=== PATIENT | male | born 1970 | race Caucasian/White ===

== ENCOUNTER 2022-11-27 08:26 | Day surgery (SDC) | payer BC, SELFPAY ==
[2022-11-27] VITALS (10 sets, daily range): BP systolic 109–166; BP diastolic 69–94; PULSE 51–60; RESP 16–20; O2SAT 95–100; BMI 32.5
--- NOTE | 2022-11-27 08:17 | IR_ITS ---
APPROVED REPORT Patient Location: Outpatient PROCEDURES Left heart catheterization Left ventriculogram Selective coronary angiogram Intravascular ultrasound to the LAD and left main artery INDICATION Typical worsening angina pectoris, Known coronary artery disease, Abnormal Myoview anterior ischemia Informed consent was obtained prior to the procedure. COMPLICATIONS NONE Estimated Blood Loss: LESS THAN 10 ML TECHNIQUE One percent lidocaine used to anesthetize the right anterior aspect of the wrist. The right radial artery was accessed via the Seldinger technique. A 6 Hebrew sheath was placed in the right radial artery. 150 mg magnesium sulfate, 800 mcg of nitroglycerin, 1mg Lidocaine and 5000 U Heparin were given through the arterial sheath. The papa catheter was also used to perform left heart catheterization, left ventriculogram and selective coronary angiogram. At the end the diagnostic angiogram therapeutic heparin was administered giving a therapeutic ACT and a guide catheter was placed in left main artery followed by a Choice PT extra-support wire being placed on the circumflex artery. The area of interest was the mid to distal circumflex artery. The intravascular ultrasound probe would not go past or beyond the left main artery and into the circumflex artery despite adequate guide support. Intravascular ultrasound interrogation demonstrated a large plaque burden in the distal left main artery. The wire was then pulled back out of the circumflex artery and into the LAD where it was then advanced. Interrogation demonstrated a high plaque burden. The MLA of the left main was 5.8 mm??? with a reference vessel of 23.5 mm???. This constituted a greater than 70% plaque burden within the left main artery. It was presumed the ostial left circumflex artery was severely diseased given the intravascular ultrasound probe could not enter the circumflex artery. At the end the procedure the apparatus was removed the sheath was removed and hemostasis was achieved using TR banding patient was transferred to the postoperative stabilization ANGIOGRAPHIC RESULTS The left main artery Was angiographically stenosed by 30% however by intravascular ultrasound probe the plaque burden exceeded 70% with an MLA of 5.8 mm??? The left anterior descending artery Had angiographically stenosed proximal area of 30% followed by a proximal to mid stent which has 30 to 40% eccentric in-stent restenosis. Distal to the stent is an additional 40 to 50% LAD stenosis. The circumflex artery Is a nondominant yet still large vessel with an ostial stenosis which cannot be angiographically identified however was severe enough to not allow passage of an intravascular ultrasound probe. There are additional 30% stenoses with a distal 40 to 50% hazy stenosis just proximal to the first and second obtuse marginal artery The right coronary artery Is a large dominant vessel and has proximal 10 to 20% stenosis with a mid vessel hazy 50 to 60% stenosis. This gives rise to a large posterior descending artery and posterior lateral branch. The PDA has mid vessel 60 to 70% stenosis The SETHI ventriculogram reveals Preserved at 60% The left ventricular end-diastolic pressure 10 mmHg IMPRESSION Severe distal left main disease as described above with a IVUS plaque burden exceeding 70% Moderate to severe disease in the mid dominant right coronary Preserved ejection fraction Normal left ventricular end-diastolic pressure PLAN 1. Refer to [facility] for consideration of bypass surgery 2. LDL less than 55 to be achieved with high intensity statin 3. Avoidance of tobacco products 4. Risk factor modification Electronically signed b
[2022-11-27 09:01] LABS: Basophils % 0.6 % (0.1-2.0); Eosinophils # 0.2 K/mm3 (0.0-0.4); Eosinophils % 2.5 % (0.1-12.0); Hematocrit 44.8 % (42.0-52.0); Hemoglobin 14.5 g/dL (14.1-18.0); Lymphocytes # 1.7 K/mm3 (0.7-4.5); Lymphocytes % 24.2 % (10-50); Mean Corpuscular HGB Conc 32.3 g/dL (31.8-35.4); Mean Corpuscular Hemoglobin 30.5 pg (27.0-31.2); Mean Corpuscular Volume 94.3 fl (80-94); Monocytes # 0.5 K/mm3 (0.1-1.0); Neutrophils # 4.6 K/mm3 (1.8-7.8); Neutrophils % 65.8 % (37.0-80.0); Platelet Count 232 K/mm3 (142-424); Red Blood Count 4.75 M/mm3 (4.60-6.20); Red Cell Distribution Width 12.8 % (11.5-17.5)
[2022-11-27 09:33] LABS: Chloride 95 mmol/L (98-107)
[2022-11-27 09:34] LABS: Potassium 3.8 mmoL/L (3.5-5.1); Sodium 138 mmol/L (136-145)
[2022-11-27 09:37] LABS: Anion Gap 19.8 mEq/L (5-15); Blood Urea Nitrogen 12 mg/dl (9-20); Calcium 9.2 mg/dl (8.4-10.2); Carbon Dioxide 27 mmol/L (22.0-30.0); Creatinine Clearance Estimated 142 mL/min (50-200); Estimated Glomerular Filt Rate 79 ml/min (>60); GFR (African American) 95 ML/MIN (>60); Glucose 118 mg/dl (74-100)
[2022-11-27 14:10] LABS: CATHL Activated Clotting Time 297 SEC (74-125)
== END 2022-11-27 13:56 | disposition home or self-care (01) ==
PROVIDERS: PCP Internal Medicine; Visit Provider Internal Medicine
DX: I25.118 Atherosclerotic heart disease of native coronary artery with other forms of angina pectoris (principal); Z79.899 Other long term (current) drug therapy; I10 Essential (primary) hypertension; Z95.5 Presence of coronary angioplasty implant and graft; E78.5 Hyperlipidemia, unspecified; R94.39 Abnormal result of other cardiovascular function study; I25.83 Coronary atherosclerosis due to lipid rich plaque; T82.855A Stenosis of coronary artery stent, initial encounter
CPT/HCPCS: 80048; 85025; 85347; 92978; 92979; 93458; 99152; 99153; C1725; C1769; J1644; Q9967

== ENCOUNTER → 2023-02-24 07:41 | Outpatient (CLI) | payer BC, SELFPAY ==
--- NOTE | 2023-02-24 07:57 | CA_ITS ---
APPROVED REPORT EXAM: Comprehensive 2D, Doppler, and color-flow Echocardiogram Mannequin Molder: Perri Myers RT(R) Ht: 6 ft 2 in Wt: 233lbs BSA: 2.32 BP: 143/88 mmHg Indications: SOB, CABG (12/2022) X 4, Ex smoker, HTN, hyperlipidemia 2D Dimensions LVOT 2.08 cm (M/F) 1.5-2.5 LVEF (Mijares's) 60.80 % M: 52 - 72 LV Volume 100.80 mL M: 62 - 150 LV Volume Index 43.45 mL/m2 M: 34 - 74 M-Mode Dimensions RVDd 2.32 cm (0.9-2.6) LA Diam 4.24 cm (1.9-4.0) LVDd 5.65 cm (3.5-5.7) Ao Diam 2.91 cm (2.0-3.7) LVDs 4.25 cm (3.5-5.7) IVSd 0.88 cm (0.6-1.1) PWd 0.84 cm (0.6-1.1) EF (Teich) 48.50% FS 24.80% EDV (Teich) 156.80 mL ESV (Teich) 80.80 mL LV Diastology E Decel Time 200.00 (160-240 msec) E/A Ratio 1.4 MED E' 8.70 (< 7 cm/sec) E'/MED E' Ratio 8.83 (>14) LAT E' 10.80 (<10 cm/sec) E/LAT E' Ratio 7.11 (>14) Mitral Valve MV E Max Anselmo. 77.00 (40-130 cm/s) MV A Velocity 54.00 (40-130 cm/s) E/A Ratio 1.44 MV Decel. Time 200.00 (160-240 ms) MV PHT 59.00 ms Tricuspid Valve TR P. Velocity 212.00 cm/s RAP Estimate 10.00 mmHg RVSP 28.00 mmHg Left Ventricle The left ventricle is normal size. The left ventricular systolic function is normal. The left ventricular ejection fraction is within the normal range. There is increased LV wall thickness. There is normal LV segmental wall motion. The left ventricular diastolic function is normal. LVEF is 55%. Right Ventricle Right ventricle is moderately dilated. The right ventricular systolic function is normal. There is increased RV wall thickness. Atria The left atrium size is normal. The right atrium size is normal. Aortic Valve The aortic valve is possibly bicuspid. The aortic valve is mildly thickened. There is no aortic valvular stenosis. No aortic regurgitation is present. Mitral Valve The mitral valve is mildly thickened. No evidence of mitral valve stenosis. Trace mitral regurgitation. Tricuspid Valve The tricuspid valve leaflets are thin and pliable. Trace tricuspid regurgitation. RVSP = 16 mmHg + RA pressure Pulmonic Valve The pulmonary valve is normal in structure. Trace pulmonic regurgitation. Great Vessels The aortic root is normal in size. The IVC is not well visualized. Pericardium There is no pericardial effusion. Other Information Study Quality: Technically Difficult. Technically limited study due to poor accoustic windows. Conclusion Technically difficult study. Normal biventricular systolic function. Moderate RV dilation. Electronically signed by : Marci Harris, 02/24/2023 18:04:32
== END ==
PROVIDERS: Visit Provider Nurse Practitioner
DX: R06.00 Dyspnea, unspecified (principal); I25.10 Atherosclerotic heart disease of native coronary artery without angina pectoris; I10 Essential (primary) hypertension; E78.5 Hyperlipidemia, unspecified
CPT/HCPCS: 93306

== ENCOUNTER 2023-04-13 07:56 | Day surgery (SDC) | payer BC, SELFPAY ==
[2023-04-13] VITALS (13 sets, daily range): BP systolic 99–148; BP diastolic 63–83; PULSE 50–63; RESP 16–20; O2SAT 96–99; BMI 31.3
--- NOTE | 2023-04-13 07:19 | IR_ITS ---
APPROVED REPORT Patient Location: Outpatient Documentation Consultant: BATSHEVA Cruz RT (R) PROCEDURES Selective coronary angiogram Selective engagement of left internal mammary artery to the LAD Selective engagement saphenous vein graft to the right coronary Selective engagement saphenous vein graft circumflex artery Catheter placed in the ascending aorta Ascending aortogram Drug-eluting stent deployment to the first obtuse marginal artery off the circumflex artery INDICATION Coronary artery disease, History of coronary bypass surgery, Accelerated angina pectoris, Loss of saphenous vein graft to the right coronary artery and circumflex artery, Informed consent was obtained prior to the procedure. COMPLICATIONS NONE Estimated Blood Loss: LESS THAN 10 ML TECHNIQUE One percent lidocaine used to anesthetize the right groin. The right femoral artery was accessed via the Seldinger technique and a 5 Bahraini sheath was placed in the right femoral artery. A JL 4, JR4 multipurpose catheter AL-1 catheter LCB catheter and MACKENZIE catheter were used to perform selective coronary angiography as well as selective engagement of the 2 vein grafts and the left internal mammary artery. The vein grafts appear to be bluntly occluded although it was believed the catheter engaged each vein graft it was still decided to perform a sending aortography to make sure no venous graft was patent. At the end of the diagnostic angiogram therapeutic heparin was administered and the 5 Bahraini sheath was exchanged for a 6 Bahraini sheath and a 6 Bahraini JL 4 guide catheter was placed in left main artery followed by Choice PT extra-support wire being placed on the circumflex artery. A 2 mm x 15 mm Dino frontier stent was deployed in the obtuse marginal artery at 20 wilfredo reducing the severe to critical stenosis to 0%. KELLY-3 flow was present before and after the procedure. At the end the procedure the apparatus was removed the groin is reprepped closure change sheath was removed and hemostasis was achieved using Perclose device patient was transferred to the postop holding in stable condition ANGIOGRAPHIC RESULTS The left main artery Has distal 10 to 20% stenosis The left anterior descending artery Has proximal and mid vessel 20 to 30% stenoses followed by a patent stent. Distal to the stent there is a 30 to 40% hazy stenosis. At the anastomosis site is a focal 80% stenosis followed by a distal concentric 90% stenosis. The circumflex artery Is a nondominant vessel gives rise to a moderate-sized first obtuse marginal artery which has a focal mid vessel 90% concentric stenosis. The second obtuse marginal artery small to moderate and is patent The right coronary artery Is a dominant vessel and has proximal 30% stenosis with a mid vessel hazy 40% stenosis with diffuse 30% stenoses throughout the large posterior lateral branch. The posterior descending artery is large and has distal 50% stenosis followed by an eccentric 90% stenosis in an area where the vessel is 1.75 to 2 mm in diameter with relatively small distal runoff The SETHI ventriculogram reveals Not performed The left ventricular end-diastolic pressure Not measured MACKENZIE to LAD is patent but small in caliber and anastomoses at an 80 to 90% stenosis with an additional 90% stenosis distal to the anastomosis within the LAD proper Saphenous to circumflex artery ostially occluded Saphenous to PDA ostially occluded Ascending aorta demonstrates normal aortic root IMPRESSION Interval loss of both saphenous vein grafts 1 to the circumflex artery at the other to the posterior descending artery Severe disease at the MACKENZIE anastomosis and distal to the anastomosis in the [place] LAD Successful stenting of the first obtuse marginal artery severe disease reduced to 0% wit
[2023-04-13 08:49] LABS: Basophils % 0.7 % (0.1-2.0); Eosinophils # 0.1 K/mm3 (0.0-0.4); Eosinophils % 1.8 % (0.1-12.0); Hematocrit 38.7 % (42.0-52.0); Hemoglobin 12.4 g/dL (14.1-18.0); Lymphocytes # 1.4 K/mm3 (0.7-4.5); Lymphocytes % 26.9 % (10-50); Mean Corpuscular HGB Conc 31.9 g/dL (31.8-35.4); Mean Corpuscular Hemoglobin 26.6 pg (27.0-31.2); Mean Corpuscular Volume 83.2 fl (80-94); Mean Platelet Volume 8.3 fl (7.4-10.4); Monocytes # 0.4 K/mm3 (0.1-1.0); Monocytes % 7.3 % (1.7-9.3); Neutrophils # 3.2 K/mm3 (1.8-7.8); Neutrophils % 63.3 % (37.0-80.0); Platelet Count 256 K/mm3 (142-424); Red Blood Count 4.65 M/mm3 (4.60-6.20); Red Cell Distribution Width 17.3 % (11.5-17.5)
[2023-04-13 08:58] LABS: Anion Gap 13.6 mEq/L (5-15); Blood Urea Nitrogen 12 mg/dl (9-20); Carbon Dioxide 28 mmol/L (22.0-30.0); Chloride 102 mmol/L (98-107); Creatinine Clearance Estimated 135 mL/min (50-200); Estimated Glomerular Filt Rate 78 ml/min (>60); GFR (African American) 95 ML/MIN (>60); Glucose 123 mg/dl (74-100); Potassium 4.6 mmoL/L (3.5-5.1); Sodium 139 mmol/L (136-145)
[2023-04-13 11:49] LABS: CATHL Activated Clotting Time 319 SEC (74-125)
--- NOTE | 2023-04-13 14:37 | HMH.PHACL ---
PHA Offset Duplicating Machine Operator Discharge Med Pharm Spec: Glendy Baxter has received discharge medication counseling on the following medications: ASPIRIN PLAVIX CRESTOR METOPROLOL LOSARTAN Patient already taking all required medications. No questions or concerns at this time. -Josy BrantleyD
== END 2023-04-13 14:52 | disposition home or self-care (01) ==
PROVIDERS: Visit Provider Internal Medicine
DX: R07.9 Chest pain, unspecified (principal); Z95.1 Presence of aortocoronary bypass graft; Z87.891 Personal history of nicotine dependence; I25.110 Atherosclerotic heart disease of native coronary artery with unstable angina pectoris; I10 Essential (primary) hypertension; E78.5 Hyperlipidemia, unspecified; I25.720 Atherosclerosis of autologous artery coronary artery bypass graft(s) with unstable angina pectoris; I25.82 Chronic total occlusion of coronary artery
CPT/HCPCS: 80048; 85025; 85347; 92928; 93459; 99152; 99153; C1725; C1760; C1769; C1876; C1894; C9600; J1644; Q9967

== ENCOUNTER → 2023-04-21 08:40 | Outpatient (CLI) | payer BC, SELFPAY ==
[2023-04-21 10:18] LABS: Alanine Aminotransferase 28 U/L (12-78); Albumin Level 4.5 g/dl (3.5-5.0); Alkaline Phosphatase 63 U/L (38-126); Aspartate Amino Transferase 33 U/L (17-59); Bilirubin,Direct 0.2 mg/dl (0.0-0.4); Bilirubin,Indirect 0.8 mg/dL (0.0-0.9); Bilirubin,Unconjugated 0.8 mg/dL (0.0-1.1); Blood Urea Nitrogen 13 mg/dl (9-20); Calcium 9.3 mg/dl (8.4-10.2); Carbon Dioxide 25 mmol/L (22.0-30.0); Chloride 103 mmol/L (98-107); Chol/HDL Ratio 2.7 (1-3.5); Cholesterol 114 mg/dl (140-200); Estimated Glomerular Filt Rate 89 ml/min (>60); GFR (African American) 107 ML/MIN (>60); Glucose 115 mg/dl (74-100); HDL Cholesterol 43 mg/dl (40-60); Magnesium 1.8 mg/dl (1.6-2.3); Sodium 138 mmol/L (136-145); Total Protein,Serum 7.5 g/dl (6.3-8.2); Triglycerides 122 mg/dl (30-150); VLDL Cholesterol 24 mg/dL (0-40)
== END ==
PROVIDERS: Visit Provider Physician Assistant
DX: I25.118 Atherosclerotic heart disease of native coronary artery with other forms of angina pectoris (principal); I10 Essential (primary) hypertension; E78.5 Hyperlipidemia, unspecified; Z79.899 Other long term (current) drug therapy
CPT/HCPCS: 36415; 80048; 80061; 80076; 83735

== ENCOUNTER 2024-02-26 08:44 | Outpatient (CLI) | payer BC, SELFPAY ==
[2024-02-26 09:06] LABS: Basophils # 0.1 K/mm3 (0-0.2); Basophils % 1.8 % (0.1-2.0); Eosinophils # 0.1 K/mm3 (0.0-0.4); Eosinophils % 1.8 % (0.1-12.0); Lymphocytes # 1.3 K/mm3 (0.7-4.5); Lymphocytes % 28.9 % (10-50); Mean Corpuscular HGB Conc 33.3 g/dL (31.8-35.4); Mean Corpuscular Hemoglobin 32.6 pg (27.0-31.2); Mean Corpuscular Volume 97.9 fl (80-94); Mean Platelet Volume 8.2 fl (7.4-10.4); Monocytes # 0.3 K/mm3 (0.1-1.0); Monocytes % 7.4 % (1.7-9.3); Neutrophils # 2.7 K/mm3 (1.8-7.8); Neutrophils % 60.1 % (37.0-80.0); Platelet Count 213 K/mm3 (142-424); Red Blood Count 4.29 M/mm3 (4.60-6.20); Red Cell Distribution Width 13.9 % (11.5-17.5); White Blood Count 4.6 K/mm3 (4.8-10.8)
[2024-02-26 09:31] LABS: Albumin Level 4.2 g/dl (3.5-5.0); Chloride 108 mmol/L (98-107); Potassium 4.3 mmoL/L (3.5-5.1); Sodium 141 mmol/L (136-145)
[2024-02-26 09:33] LABS: Blood Urea Nitrogen 14 mg/dl (9-20); Estimated Glomerular Filt Rate 78 ml/min (>60); GFR (African American) 95 ML/MIN (>60)
[2024-02-26 09:34] LABS: Alanine Aminotransferase 23 U/L (12-78); Alkaline Phosphatase 59 U/L (38-126); Anion Gap 8.3 mEq/L (5-15); Aspartate Amino Transferase 23 U/L (17-59); Bilirubin,Indirect 1.2 mg/dL (0.0-0.9); Bilirubin,Total 1.2 mg/dl (0.2-1.3); Bilirubin,Unconjugated 1.4 mg/dL (0.0-1.1); Calcium 9.2 mg/dl (8.4-10.2); Carbon Dioxide 29 mmol/L (22.0-30.0); Cholesterol 100 mg/dl (140-200); Glucose 101 mg/dl (74-100); Total Protein,Serum 6.6 g/dl (6.3-8.2); Triglycerides 100 mg/dl (30-150); VLDL Cholesterol 20 mg/dL (0-40)
[2024-02-26 09:35] LABS: Chol/HDL Ratio 2.4 (1-3.5); HDL Cholesterol 42 mg/dl (40-60); Magnesium 1.9 mg/dl (1.6-2.3)
[2024-02-26 09:54] LABS: Free T4 (Free Thyroxine) 0.86 ng/dl (0.78-2.19)
[2024-02-26 10:07] LABS: Thyroid Stimulating Hormone 1.89 uIU/mL (0.465-4.68)
== END 2024-02-26 23:59 | disposition home or self-care (01) ==
LOC: LAB 08:45
PROVIDERS: Visit Provider Physician Assistant
DX: I25.10 Atherosclerotic heart disease of native coronary artery without angina pectoris (principal); I10 Essential (primary) hypertension; E78.5 Hyperlipidemia, unspecified
CPT/HCPCS: 36415; 80048; 80061; 80076; 83735; 84439; 84443; 85025

== ENCOUNTER 2024-12-05 09:17 | Outpatient (CLI) | payer MEDICARE, SELFPAY ==
--- NOTE | 2024-12-05 09:30 | CA_ITS ---
APPROVED REPORT EXAM: Comprehensive 2D, Doppler, and color-flow Echocardiogram Emt P: Qian Mars RVT Ht: 6 ft 2 in Wt: 230lbs BSA: 2.31 BP: 124/71 mmHg Indications: CAD,CABG,EDEMA,TORO,EX SMOKER,CARDIOMEGALY,RV DILITATION,R/O BICUPSID AOV 2D Dimensions LA Volume 31.50 mL LA Volume Index 13.64 mL/m2 (M/F) 16-34 M-Mode Dimensions RVDd 2.25 cm (0.9-2.6) LA Diam 4.11 cm (1.9-4.0) LVDd 5.39 cm (3.5-5.7) LVDs 3.78 cm (3.5-5.7) IVSd 1.13 cm (0.6-1.1) PWd 0.68 cm (0.6-1.1) EF (Teich) 56.50% FS 29.90% EDV (Teich) 140.70 mL TAPSE 2.30 (<1.7) ESV (Teich) 61.20 mL LV Diastology E Decel Time 87 (160-240 msec) E/A Ratio 1.0 Aortic Valve SHAHZAD Index 1.66 cm2/m2 AoV Peak Anselmo. 114.0 (50-130 cm/s) AO Peak GR. 5.20 mmHg AO Mean GR. 2.90 (<5 mmHg) AO VTI 26.5 (18-25 cm) SHAHZAD (VTI) 3.91 (2.5-4.5 cm2) Mitral Valve MV E Max Anselmo. 63.0 (40-130 cm/s) MV A Velocity 66.0 (40-130 cm/s) E/A Ratio 0.95 MV PHT 25.0 ms Pulmonary Valve PV Peak Velocity 108.0 (50-150 cm/s) Tricuspid Valve TR P. Velocity 185.00 cm/s RAP Estimate 10.00 mmHg RVSP 23.60 mmHg Left Ventricle The left ventricle is normal size. Left ventricular systolic function is low normal. There is normal left ventricular wall thickness. There is mild hypokinesis of the septal LV wall. Grade 1 diastolic dysfunction is present. LVEF is 50%. Right Ventricle Right ventricle is mildly dilated. The right ventricular systolic function is normal. Atria The left atrium size is normal. The right atrium size is normal. There is no Doppler evidence of interatrial shunt. Aortic Valve Aortic valve opens well. Aortic valve is trileaflet. There is no aortic valvular stenosis. Trace aortic regurgitation. Mitral Valve The mitral valve is normal in structure. No evidence of mitral valve stenosis. Mild mitral regurgitation. Tricuspid Valve Tricuspid valve is grossly normal in structure and function. Mild tricuspid regurgitation. RVSP is 20-25 mmHg. Pulmonic Valve The pulmonary valve is normal in structure. Mild pulmonic regurgitation. Great Vessels The aortic root is normal in size. IVC is normal in size and collapses >50% with inspiration. Pericardium There is no pericardial effusion. Other Information Study Quality: Fair Conclusion Low normal LV systolic function (LVEF 50%). Mild hypokinesis of the septal LV wall. Mild RV dilation with normal RV function. Aortic valve opens well, trileaflet aortic valve (not bicuspid AV). Mild MR, mild TR, mild PI. Electronically signed by : Marci Harris MD 12/11/2024 22:54:42
[2024-12-05 10:42] LABS: Basophils % 0.8 % (0.1-2.0); Eosinophils # 0.1 Kmm3 (0.0-0.4); Eosinophils % 1.3 % (0.1-12.0); Hemoglobin 13.7 g/dL (14.1-18.0); Immature Granulocytes # 0.01 10^3uL; Immature Granulocytes % 0.2 %; Lymphocytes # 1.5 K/mm3 (0.7-4.5); Lymphocytes % 27.8 % (10-50); Mean Corpuscular HGB Conc 33.4 g/dL (31.8-35.4); Mean Corpuscular Hemoglobin 31.2 pg (27.0-31.2); Mean Corpuscular Volume 93.4 fl (80-94); Mean Platelet Volume 9.5 fl (7.4-10.4); Monocytes # 0.4 K/mm3 (0.1-1.0); Monocytes % 7.9 % (1.7-9.3); Neutrophils # 3.3 K/mm3 (1.8-7.8); Nucleated Red Blood Cells # 0 10^3/uL; Nucleated Red Blood Cells % 0 %; Platelet Count 203 K/mm3 (142-424); Red Blood Count 4.39 M/mm3 (4.60-6.20); Red Cell Distribution Width 12.1 % (11.5-17.5); Red Cell Distribution Width-SD 41.8 fL; White Blood Count 5.3 K/mm3 (4.8-10.8)
[2024-12-05 11:15] LABS: Albumin Level 4.4 g/dl (3.5-5.0); Chloride 105 mmol/L (98-107); Sodium 137 mmol/L (136-145)
[2024-12-05 11:16] LABS: Potassium 4.5 mmoL/L (3.5-5.1)
[2024-12-05 11:18] LABS: Alanine Aminotransferase 18 U/L (12-78); Alkaline Phosphatase 60 U/L (38-126); Anion Gap 10.5 mEq/L (5-15); Aspartate Amino Transferase 20 U/L (17-59); Bilirubin,Direct 0.3 mg/dl (0.0-0.4); Bilirubin,Indirect 1.1 mg/dL (0.0-0.9); Bilirubin,Total 1.4 mg/dl (0.2-1.3); Bilirubin,Unconjugated 1.1 mg/dL (0.0-1.1); Blood Urea Nitrogen 10 mg/dl (9-20); Calcium 9.1 mg/dl (8.4-10.2); Carbon Dioxide 26 mmol/L (22.0-30.0); Cholesterol 114 mg/dl (140-200); Estimated Glomerular Filt Rate 88 ml/min (>60); GFR (African American) 107 ML/MIN (>60); Glucose 107 mg/dl (74-100); Total Protein,Serum 6.7 g/dl (6.3-8.2); Triglycerides 103 mg/dl (30-150); VLDL Cholesterol 21 mg/dL (0-40)
[2024-12-05 11:19] LABS: Chol/HDL Ratio 2.2 (1-3.5); HDL Cholesterol 51 mg/dl (40-60)
[2024-12-05 11:30] LABS: Direct LDL Cholesterol 39.25 mg/dL (100-129)
[2024-12-05 11:35] LABS: Free T4 (Free Thyroxine) 0.86 ng/dl (0.78-2.19)
[2024-12-05 11:49] LABS: Thyroid Stimulating Hormone 2.34 uIU/mL (0.465-4.68)
== END 2024-12-05 23:59 | disposition home or self-care (01) ==
LOC: RT 09:17
PROVIDERS: Visit Provider Physician Assistant
DX: I08.8 Other rheumatic multiple valve diseases (principal); I11.9 Hypertensive heart disease without heart failure; E78.5 Hyperlipidemia, unspecified; I25.119 Atherosclerotic heart disease of native coronary artery with unspecified angina pectoris; Z95.1 Presence of aortocoronary bypass graft; Z87.891 Personal history of nicotine dependence
CPT/HCPCS: 36415; 80048; 80061; 80076; 84439; 84443; 85025; 93306

== ENCOUNTER 2025-05-08 14:49 | Outpatient (CLI) | payer MEDICARE, SELFPAY ==
--- OUTSIDE RECORDS SUMMARY | 2025-05-08 14:53 | XMS_ITS | Encounter Summary ---
Author Organization [facility] Address [address] [place] [address] Care Team Providers Care Tower Crane Operator Name Role Phone Unavailable Primary Care Provider Unavailabl e Encounter Details Date Type Department Care Team (Late st Contact Info) Description 08/12/2011 Transcribe Orders Centralized Scheduling [address] [place] [address] Zackary Moulton MD [address] [place] [address] Social History Tobacco Use Types Packs/Day Years Used Date Smoking Tobacco: Every Day Cigarettes 0.5 20 Alcohol Use Standard Drinks/Week Comments No 0 (1 standard drink = 0.6 oz pur e alcohol) Sex and Gender Information Value Date Recorded Sex Assigned at Not on file Legal Sex Male 11:24 PM EST Gender Identity Not on file Sexual Orientation Not on file 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
--- OUTSIDE RECORDS SUMMARY | 2025-05-08 14:53 | XMS_ITS | Clinical Summary ---
Author Organization [facility] Address [address] [place] [address] Care Team Providers Care Camp Assistant Name Role Phone Unavailable Primary Care Provider Unavailabl e Allergies Active Allergy Reactions Criticality Noted Date Comments Amoxicillin Rash 07/02/2011 Ciprofloxacin Rash 07/02/2011 Medications CYCLOBENZAPRINE HCL (FLEXERIL PO) Active HYDROCHLOROTHIA ZIDE PO Active AMLODIPINE BESYLATE (NORVASC PO) Active tiZANidine (ZANAFLEX) 4 mg tabletIndicatio ns:OA (osteoarthritis ) Take 1 Tab by mouth Every 8 hours as needed for Muscle spasms. 90 Tab 3 08/28/2011 Active Diclofenac Sodium (VOLTAREN) 1 % topical gelIndications: OA (osteoarthritis ) 4 g by Topical route Every 8 hours. 5 Tube 2 08/28/2011 Active Active Problems Problem Noted Date Diagnosed Date OA (osteoarthritis) 08/28/2011 Degeneration of lumbar or lumbosacral interverte bral disc 08/28/2011 Displacement of lumbar inter vertebral disc without myelopathy 07/02/2011 Other symptoms referable to back 07/02/2011 Spasm of muscle 07/02/2011 Neuralgia, neuritis, and radiculitis, unspecifie d 07/02/2011 Family History Medical History Relation Name Comments Heart Disease Father Hypertension Father Asthma Mother Cancer Mother Cancer Sister Relation Name Status Comments Father Alive Mother Sister Social History Tobacco Use Types Packs/Day Years [...] 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 file Not on file Not on file Last Filed Vital Signs Vital Sign Reading Time Taken Comments Blood Pressure 151/105 08/28/2011 12:43 PM EST Pulse 56 08/28/2011 12:43 PM EST Temperature 36.7 C (98.1 F) 08/14/2011 8:01 AM EST Respiratory Rate 18 08/28/2011 12:43 PM EST Oxygen Saturation - - Inhaled Oxygen Concentration - - Weight 90.7 kg (200 lb) 08/28/2011 12:43 PM EST Height 188 cm (6' 2 ) 08/28/2011 12:43 PM EST Body Mass Index 25.68 08/28/2011 12:43 PM EST Plan of Treatment Health Maintenance Due Date Last Done Comments COLOGUARD 1971 COLONOSCOPY 1971 Colorectal Screening Combination 1971 FIT 1971 HEP C SCREENING 1971 SIGMOIDOSCOPY 1971 ANNUAL WELLNESS EXAM 1974 DTAP/TDAP/TD VACCINE (1 - Tdap) 1990 Shingles Vaccine (Shingrix) (1 of 2) 2021 INFLUENZA VACCINE (#1) 2025 HEP A VACCINE Aged Out No longer elig ible based on patient's age to complete this topic HIB VACCINE Aged Out No longer eligi ble based on patient's age to complete this topic ROTOVIRUS VACCINE Aged Out No longer eligible based on patient's age to complete this topic Insurance [place] [place] [id number]
[2025-05-08 15:33] LABS: Hematocrit 39.6 % (42.0-52.0); Hemoglobin 13.3 g/dL (14.1-18.0); Immature Granulocytes % 0.3 %; Mean Corpuscular HGB Conc 33.6 g/dL (31.8-35.4); Mean Corpuscular Hemoglobin 31.4 pg (27.0-31.2); Mean Corpuscular Volume 93.6 fl (80-94); Nucleated Red Blood Cells % 0 %; Platelet Count 183 K/mm3 (142-424); Red Blood Count 4.23 M/mm3 (4.60-6.20); Red Cell Distribution Width-SD 42.8 fL; White Blood Count 6.0 K/mm3 (4.8-10.8)
[2025-05-08 16:31] LABS: Alanine Aminotransferase 23 U/L (12-78); Albumin Level 4.0 g/dl (3.5-5.0); Alkaline Phosphatase 76 U/L (38-126); Aspartate Amino Transferase 21 U/L (17-59); Bilirubin,Direct 0.2 mg/dl (0.0-0.4); Bilirubin,Indirect 0.8 mg/dL (0.0-0.9); Bilirubin,Total 1.0 mg/dl (0.2-1.3); Bilirubin,Unconjugated 0.8 mg/dL (0.0-1.1); Cholesterol 123 mg/dl (140-200); HDL Cholesterol 47 mg/dl (40-60); Magnesium 1.9 mg/dl (1.6-2.3); Total Protein,Serum 6.3 g/dl (6.3-8.2); Triglycerides 211 mg/dl (30-150)
[2025-05-08 16:49] LABS: Free T4 (Free Thyroxine) 0.91 ng/dl (0.78-2.19)
[2025-05-08 17:02] LABS: Thyroid Stimulating Hormone 1.48 uIU/mL (0.465-4.68)
[2025-05-08 18:17] LABS: Hemoglobin A1C 6.0 % (4.0-6.0)
== END 2025-05-08 23:59 | disposition home or self-care (01) ==
LOC: LAB 14:50
PROVIDERS: Visit Provider Nurse Practitioner
DX: I25.10 Atherosclerotic heart disease of native coronary artery without angina pectoris (principal); I11.9 Hypertensive heart disease without heart failure; E78.5 Hyperlipidemia, unspecified; Z79.899 Other long term (current) drug therapy
CPT/HCPCS: 36415; 80061; 80076; 83036; 83735; 84439; 84443; 85025

== ENCOUNTER 2025-05-23 12:44 | Outpatient (CLI) | payer MEDICARE, SELFPAY ==
--- NOTE | 2025-05-23 | CA_ITS ---
APPROVED REPORT Exam: Exercise Treadmill Technologist: Kirsty Baxter Stress Nurse: Mary DING, RN Ht: 6 ft 2 in Wt: 248 lbs BSA: 2.38 m2 HR: 58 bpm BP: 152/79 mmHg Indications: Coronary Artery Disease Stress Test Details Test: Exercise stress testing was performed using a Carmelo protocol. HR Resting HR: 58 bpm Max Heart Rate (APMHR): 166.550775 bpm Max HR Achieved: 145 bpm Target HR (85% APMHR): 141.076445 bpm % of APMHR: 87.35 Recovery HR: 75 bpm BP Resting BP: 152.0/79.0 mmHg Max BP: 210.0/98.0 mmHg Recovery BP: 146.0/82.0 mmHg ECG Stress ECG Conclusion Test stopped due to hypertension. Chest burning 1/10 on pain scale. Symptoms: Angina Arrhythmias/Ectopy: PAC/PVC ST-T Changes: 1.5 mm flattened/downsloping ST segment depression, multiple leads. Conclusion: Abnormal ECG tracing. Arredondo Treadmill Score: - 9 Electronically signed by : Marci Harris MD 05/24/2025 00:11:21
--- OUTSIDE RECORDS SUMMARY | 2025-05-23 12:56 | XMS_ITS | Clinical Summary ---
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
--- OUTSIDE RECORDS SUMMARY | 2025-05-23 12:56 | XMS_ITS | Encounter Summary ---
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 Not on file Not on file documented as of this encounter Functional Status * Encounter Vitals Question Answer Date of Assessment Author BP 177/105 08/14/2011 8:42 AM EST Prest on, Charissa Temp 98.1 08/14/2011 8:01 AM Rosario Uriarte RN Temp src Oral 08/14/2011 8:01 AM Rosario Uriarte RN Pulse 57 08/14/2011 8:42 AM EST Prest on, Charissa Resp 18 08/14/2011 8:42 AM EST Prest on, Charissa Height 74.000 08/14/2011 8:01 AM Rosario Uriarte RN Weight 3248 08/14/2011 8:01 AM Rosario Uriarte RN Pain Score 0 - No pain 08/14/2011 8:42 AM ELLE grady Charissa * Spine and Pain Evaluation Question Answer Date of Assessment Author Fall Risk LOW 08/14/2011 8:01 AM Rosario Uriarte RN Pain Level 4 08/14/2011 8:01 AM Rosario Uriarte RN ID BAND yes 08/14/2011 8:01 AM Rosario Uriarte RN NPO Since mn 08/14/2011 8:01 AM Rosario Uriarte RN Track Mechanic (present) yes 08/14/2011 8:01 AM Rosario Negro RN Sleep Interference yes 08/14/2011 8:01 AM Rosario Espinoza RN Presently working no 08/14/2011 8:01 AM Rosario Espinoza RN PT Visit no 08/14/2011 8:01 AM Rosario Uriarte RN Personal Belongings with patient 08/14/2011 8:01 AM Rosario Jensen RN documented as of this encounter Mental Status * Question Answer Entry Date Author BP 177/105 08/14/2011 8:42 AM ELLE grady Charissa Temp 98.1 08/14/2011 8:01 AM Rosario Uriarte RN Temp src Oral 08/14/2011 8:01 AM Rosario Uriarte RN Pulse 57 08/14/2011 8:42 AM ELLE grady Charissa Resp 18 08/14/2011 8:42 AM ELLE grady Charissa * Question Answer Entry Date Author Pain Level 4 08/14/2011 8:01 AM Rosario Uriarte RN documented in this encounter Plan of Treatment Not on file documented as of this encounter Visit Diagnoses Not on filedocumented in this encounter
--- NOTE | 2025-05-23 13:00 | NM_ITS ---
APPROVED REPORT Exam: Nuclear Stress Test Indication: cad, cabg, htn, hyperlipidemia, fm hx, c.p. Patient Location: Outpatient Stress Tech: Kirsty Baxter [place] Tech:Martha Treesa, ARRT, RT (R)(N) Ht: 6 ft 2 in Wt: 245 lbs HR: 55 bpm BP: 152/79 mmHg BSA: 2.37 m2 TID: 0.88 BMI: 31.4 History: cad, cabg, htn, hyperlipidemia, fm hx, c.p. Procedure: Patient exercised on Carmelo protocol 6:40 minutes and sec, resting heart rate 55 bpm, resting blood pressure 152/79 mmHg, with exercise maximum heart rate achived was 145 bpm which is 87 % of the maximum predicted heart rate and blood pressure was 210/98 mmHg. Test was stopped due to sob. Patient denied any complaint of chest pain. Patient has exercise capacity, achieved 7.1 METs of workload on treadmill, the blood pressure response to exercise was . Cardiac Stress and Resting SPECT Images: Cardiac Stress and Resting SPECT images were obtained using technetium 99m Myoview 32.2 mCi stress and 10.16 mCi at rest. Resting and stress imaging in supine and prone positions demonstrate a medium sized, moderate, partially reversible perfusion defect in the basal to mid inferior LV dee. Gated imaging demonstrates normal global LV systolic function. There is mild hypokinesis of the basal inferior LV wall. LVEF is calculated at 53%. Conclusion: Medium sized, moderate, partially reversible perfusion defect in the basal to mid inferior LV dee. Gated imaging demonstrates normal global LV systolic function. There is mild hypokinesis of the basal inferior LV wall. LVEF is calculated at 53%. Electronically signed by : Marci Harris MD 05/24/2025 13:44:09
[2025-05-23 13:50] VITALS: BP 152/79; BP 210/98; PULSE 58; RESP 14
[2025-05-23] MEDS: SODIUM CHLORIDE 0.9% 10ML SYR (RAD ONLY) 10 ML IV ×2 (14:01)
[2025-05-23] MEDS: ISOTOPE MYOVIEW (PER STUDY) 1 DOSE IV (14:02)
--- NOTE | 2025-05-23 14:17 | PC.NURSE ---
Experienced chest burning and hypertensive response to treadmill stress testing. Test stopped patient rated chest burning 1/10on pain scale. 2 min in recovery chest burning resolved. Did have ecg changes that resolved to baseline ecg during recovery as well.
== END 2025-05-23 23:59 | disposition home or self-care (01) ==
LOC: RAD 12:45
PROVIDERS: PCP Nurse Practitioner; Visit Provider Nurse Practitioner
DX: I49.1 Atrial premature depolarization (principal); I49.3 Ventricular premature depolarization; E78.5 Hyperlipidemia, unspecified; I25.10 Atherosclerotic heart disease of native coronary artery without angina pectoris; I11.9 Hypertensive heart disease without heart failure; R94.39 Abnormal result of other cardiovascular function study; R94.31 Abnormal electrocardiogram [ECG] [EKG]; Z79.899 Other long term (current) drug therapy; Z95.1 Presence of aortocoronary bypass graft
CPT/HCPCS: 78452; 93017; 93018; A9502

== ENCOUNTER 2025-06-13 08:56 | Day surgery (SDC) | payer MEDICARE, SELFPAY ==
[2025-06-13] VITALS (9 sets, daily range): BP systolic 106–169; BP diastolic 57–77; PULSE 53–62; RESP 18–20; TEMP 36.1; O2SAT 93–97; BMI 32.3
--- NOTE | 2025-06-13 07:06 | IR_ITS ---
APPROVED REPORT Patient Location: Outpatient PROCEDURES Left heart catheterization Left ventriculogram Selective coronary angiogram Selective engagement left internal mammary artery to the LAD INDICATION Coronary artery disease, Accelerated angina pectoris, Abnormal Myoview, History of coronary bypass surgery, Informed consent was obtained prior to the procedure. COMPLICATIONS NONE Estimated Blood Loss: LESS THAN 10 ML TECHNIQUE One percent lidocaine used to anesthetize the right groin. The right femoral artery was accessed via the Seldinger technique and a 5 Tamazight sheath was placed in the right femoral artery. A JL 4, JR4 catheter were used to perform left heart catheterization, left ventriculogram selective coronary angiography as well as selective engagement of the left internal mammary artery. At the end the procedure the apparatus was removed the groin is reprepped closure change sheath was removed and hemostasis was achieved using Perclose device patient was transferred to the postop already in stable condition ANGIOGRAPHIC RESULTS The left main artery Has distal 40% stenosis The left anterior descending artery Comes off in a 90 degree angle from the left main artery and is patent in the proximal segment with stents in the midportion. There is competitive flow from the MACKENZIE graft in the mid LAD The circumflex artery Comes off at a 90 degree angle from the left main artery and has proximal and mid vessel 50% stenosis The right coronary artery Large dominant with proximal 30% stenoses mid vessel 40 to 50% stenosis with diffuse 40% stenoses throughout the posterior lateral and posterior descending artery The SETHI ventriculogram reveals Normal 65% The left ventricular end-diastolic pressure 15 mmHg MACKENZIE graft is patent however the flow is slow into the LAD. Vein graft to the right coronary artery and circumflex artery are known to be occluded IMPRESSION Coronary disease as described above Sharply angulated LAD and circumflex arteries as described above Disease in the circumflex artery which is best managed medically at this time. I am concerned about stent to the left main artery into the circumflex artery with a 90 degree angulation that this could transmit anatomical kinking distally. Normal ejection fraction Normal LVEDP PLAN 1. Recommend maximizing antianginal medications 2. If patient's angina pectoris is absolutely recalcitrant to medical management and his symptoms are affecting quality of life I would consider stenting the distal left main into the circumflex artery given the MACKENZIE graft is patent 3. Risk factor modification Electronically signed by : Justin Singleton MD 06/13/2025 19:29:56
[2025-06-13 09:12] LABS: Hematocrit 42.5 % (42.0-52.0); Hemoglobin 14.2 g/dL (14.1-18.0); Immature Granulocytes % 0.5 %; Mean Corpuscular HGB Conc 33.4 g/dL (31.8-35.4); Mean Corpuscular Hemoglobin 31.3 pg (27.0-31.2); Mean Corpuscular Volume 93.8 fl (80-94); Nucleated Red Blood Cells % 0 %; Platelet Count 186 K/mm3 (142-424); Red Blood Count 4.53 M/mm3 (4.60-6.20); Red Cell Distribution Width-SD 43.1 fL; White Blood Count 6.6 K/mm3 (4.8-10.8)
[2025-06-13 09:17] LABS: Potassium 4.7 mmoL/L (3.5-5.1); Sodium 141 mmol/L (136-145)
[2025-06-13 09:20] LABS: Blood Urea Nitrogen 13 mg/dl (9-20); Calcium 9.1 mg/dl (8.4-10.2); Carbon Dioxide 30 mmol/L (22.0-30.0); Creatinine Clearance Estimated 124 mL/min (50-200); Creatinine,Serum 1.10 mg/dl (0.66-1.25); Estimated Glomerular Filt Rate 70 ml/min (>60); GFR (African American) 84 ML/MIN (>60); Glucose 117 mg/dl (74-100)
[2025-06-13 09:41] LABS: Anion Gap 14.7 mEq/L (5-15); Chloride 101 mmol/L (98-107)
[2025-06-13] MEDS: HEPARIN 1,000 UNITS/500ML NS (CATH LAB) 3000 UNIT IV (14:34)
[2025-06-13] MEDS: LIDOCAINE 1% 10ML MDV 10 ML IJ (14:34)
[2025-06-13] MEDS: MIDAZOLAM HCL 1MG/ML 5ML VIAL 1 MG IV (14:41)
[2025-06-13] MEDS: FENTANYL 100MCG/2ML VIAL 50 MCG IV (14:41)
[2025-06-13] MEDS: 0.9 % SODIUM CHLORIDE 500 ML 25 ML IV (14:42)
[2025-06-13] MEDS: IOPAMIDOL-370 (76%);100ML BOTTLE 80 ML IV (15:11)
--- NOTE | 2025-06-13 16:15 | SUR.PHASEII ---
DR LUX OKAYED PATIENT TO LEAVE AT THIS TIME
== END 2025-06-13 16:18 | disposition home or self-care (01) ==
PROVIDERS: Visit Provider Internal Medicine
PROC: 4A023N7 Measurement of Cardiac Sampling and Pressure, Left Heart, Percutaneous Approach (ICD-10-PCS; CPT 93452; principal; 2025-06-13 09:00)
DX: I25.118 Atherosclerotic heart disease of native coronary artery with other forms of angina pectoris (principal); R07.89 Other chest pain; R94.39 Abnormal result of other cardiovascular function study; I51.7 Cardiomegaly; I10 Essential (primary) hypertension; E78.5 Hyperlipidemia, unspecified; R94.31 Abnormal electrocardiogram [ECG] [EKG]; E66.9 Obesity, unspecified; Z68.32 Body mass index [BMI] 32.0-32.9, adult; Z87.891 Personal history of nicotine dependence; Z95.1 Presence of aortocoronary bypass graft; Z95.5 Presence of coronary angioplasty implant and graft; Z79.82 Long term (current) use of aspirin; Z79.02 Long term (current) use of antithrombotics/antiplatelets; Z79.899 Other long term (current) drug therapy; Z88.1 Allergy status to other antibiotic agents; Z88.0 Allergy status to penicillin; Z82.49 Family history of ischemic heart disease and other diseases of the circulatory system
CPT/HCPCS: 36415; 80048; 85025; 93459; 99152; C1725; C1760; C1769; C1894; J1200; J1644; J2003; J3010; J7040; Q9967